=== PATIENT | male | born 1990 | race Caucasian/White ===

== ENCOUNTER 2016-11-09 14:07 | Emergency (ER) | payer MEDICAID, OTHER ==
[~2016-11-09] VITALS: Ht 182.9 cm; Wt 110.0 kg
[~2016-11-09 14:07] MED LIST: ALBU0.08 NEB; ALBU6.7H INH; CITA40TA4 PO; HYDR-3583 PO; MORP1TAB26 PO; NEBUKIT5; NEBULIZER/ADULT1 KIT; NEBULIZER1 MI1; RANI150T PO
[2016-11-09 14:40] VITALS: BP 129/92; PULSE 107; RESP 16; TEMP 98.5; O2SAT 99
[2016-11-09] MEDS ORDERED: SODIUM CHLOR 0.9% 1000 ML INJ 1,000 ML IV SCH (16:08)
[2016-11-09] MEDS ORDERED: SODIUM CHLORIDE 0.9% FLUSH 10 ML FLUSH IV FLUSH PRN (16:15)
[2016-11-09] MEDS ORDERED: ONDANSETRON HCL 4 MG/2 ML VIAL IVP ONE (16:15)
[2016-11-09] MEDS ORDERED: HYDROmorphone HCL PF 2 MG/ML VIAL IVS ONE (16:15)
[2016-11-09 16:22] VITALS: RESP 16; O2SAT 97
[2016-11-09 16:27] LABS: AUTOMATED NEUTROPHIL # 5.4 TH/MM3 (1.8-7.7); BASOPHIL # 0.1 TH/MM3 (0-0.2); BASOPHIL % 1.6 % (0.0-2.0); EOSINOPHIL # 0.6 TH/MM3 (0-0.4); EOSINOPHIL % 6.7 % (0.0-4.0); HEMATOCRIT 34.8 % (39.0-51.0); LYMPH % 25.9 % (9.0-44.0); LYMPHOCYTE # 2.4 TH/MM3 (1.0-4.8); MEAN CELL VOLUME 68.5 FL (80.0-100.0); MEAN CORPUSCULAR HEMOGLOBIN 20.9 PG (27.0-34.0); MEAN CORPUSCULAR HGB CONC 30.6 % (32.0-36.0); MONO % 8.6 % (0.0-8.0); NEUT % 57.2 % (16.0-70.0); PLATELET COUNT 402 TH/MM3 (150-450); RED BLOOD COUNT 5.09 MIL/MM3 (4.50-5.90); RED CELL DISTRIBUTION WIDTH 16.2 % (11.6-17.2); WHITE BLOOD COUNT 9.3 TH/MM3 (4.0-11.0)
[2016-11-09 16:32] LABS: HEMO FLAGS AUTO DIFF
[2016-11-09 16:35] LABS: CHLORIDE 106 MEQ/L (98-107); SODIUM (NA) 144 MEQ/L (136-145)
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
[2016-11-09 16:41] LABS: ANION GAP 8 MEQ/L (5-15); BLOOD UREA NITROGEN 10 MG/DL (7-18)
[2016-11-09 16:44] LABS: ALT (GPT) 33 U/L (12-78); AST (GOT) 20 U/L (15-37); GLOMERULAR FILTRATION RATE 89 ML/MIN (>89)
[2016-11-09 16:45] LABS: TOTAL BILIRUBIN ADULT 0.3 MG/DL (0.2-1.0)
[2016-11-09 16:47] LABS: ALKALINE PHOSPHATASE 68 U/L (45-117)
[2016-11-09 16:59] LABS: OVALOCYTES 1+ (NORMAL); PLATELET ESTIMATE SMEAR NORMAL (NORMAL); PLATELET MORPHOLOGY NORMAL (NORMAL); ROULEAUX PRESENT (NORMAL)
[2016-11-09 17:00] LABS: SCAN/DIFF AUTO DIFF CONFIRMED
[2016-11-09] MEDS ORDERED: HYDR-3533 PO (17:36)
[2016-11-09 17:49] VITALS: BP 115/70
[2016-11-25] MEDS ORDERED: ALBU6.7H INH (13:06)
[2016-12-24] MEDS ORDERED: PROM25TA10 PO (11:34)
== END 2016-11-09 17:55 | disposition home or self-care (01) ==
LOC: PHED 14:07
DX: K86.1 Other chronic pancreatitis (principal); M54.6 Pain in thoracic spine; J45.909 Unspecified asthma, uncomplicated; R11.2 Nausea with vomiting, unspecified; Z72.0 Tobacco use
CPT/HCPCS: 80053; 83690; 85025; 96361; 96374; 96375; 99284; J1170; J2405; J7030

== ENCOUNTER 2016-12-07 20:19 | Emergency (ER) | payer OTHER ==
[~2016-12-07] VITALS: Ht 182.9 cm; Wt 106.5 kg
[~2016-12-07 20:19] MED LIST changes: -CITA40TA4 PO; +HYDR-3533 PO; -HYDR-3583 PO; -MORP1TAB26 PO; -NEBUKIT5; -NEBULIZER/ADULT1 KIT; -NEBULIZER1 MI1; -RANI150T PO
[2016-12-07 20:23] VITALS: BP 123/86; PULSE 112; RESP 18; TEMP 98.3; O2SAT 99
[2016-12-07 22:42] VITALS: BP 106/59; PULSE 105; RESP 22; O2SAT 98
[2016-12-07] MEDS ORDERED: antidepressant (22:58)
[2016-12-07] MEDS ORDERED: PROM25TA10 PO (22:58)
--- NOTE | 2016-12-07 23:06 | PD ---
HPI Chief Complaint: GI Complaint Time Seen by Provider: 22:47 Travel History International Travel<30 days: No Contact w/Intl Traveler<30days: No Traveled to known affect area: No History of Present Illness HPI The patient is a 26-year-old male with a history of pancreatitis who comes in for bilateral upper quadrant pain and vomiting blood for 2 days. He saw a senior portfolio manager locally but he was referred to mail. He has not been drinking any alcohol in the last month he states. He does have Phenergan and hydrocodone at home for nausea and pain. He denies any syncopal or near syncopal spells. PFSH Past Medical History Asthma: Yes Diminished Hearing: No Neurologic: Yes (hx broken neck) Pancreatitis: Yes Past Surgical History Abdominal Surgery: Yes (exploratory lap for pancreatitis) Cholecystectomy: Yes Social History Alcohol Use: Yes (RARE) Tobacco Use: Yes (RARE) Allergies-Medications (Allergen,Severity, Reaction): Coded Allergies: Contrast Media (Verified Allergy, Severe, gi upset, 12/07/16) Stadol (Verified Allergy, Severe, gi upset, 12/07/16) Coumadin (Verified Allergy, Unknown, system failure, 12/07/16) Lovenox (Verified Allergy, Unknown, system failure, 12/07/16) Onion (Verified Allergy, Unknown, pancreatitis, 12/07/16) Silver-Containing Cmpds (Verified Allergy, Unknown, system failure, ) Reported Meds & Prescriptions Reported Meds & Active Scripts Active Proventil Hfa 6.7 GM Inh (Albuterol Sulfate) 90 Mcg/Act Aer 2 Puff INH Q2HR PRN Lortab (Hydrocodone-Acetaminophen) 5-325 Mg Tab 1-2 Tab PO Q6H PRN Albuterol Neb (Albuterol Sulfate) 2.5 Mg/3 Ml Neb 2.5 Mg NEB Q4HR NEB PRN Reported Phenergan (Promethazine HCl) 25 Mg Tablet 25 Mg PO Q6H PRN [antidepressant] Review of Systems Except as stated in HPI: all other systems reviewed are Neg Physical Exam Narrative GENERAL: The patient is alert, anxious, oriented 3 in moderate apparent distress with his upper quadrant abdominal discomfort. He does not appear anemic. His vital signs show heart rate of 112 but are otherwise normal. SKIN: Focused skin assessment warm/dry. HEAD: Atraumatic. Normocephalic. EYES: Pupils equal and round. No scleral icterus. No injection or drainage. ENT: No nasal bleeding or discharge. Mucous membranes pink and moist. NECK: Trachea midline. No JVD. CARDIOVASCULAR: Regular rate and rhythm. No murmur appreciated. RESPIRATORY: No accessory muscle use. Clear to auscultation. Breath sounds equal bilaterally. GASTROINTESTINAL: Abdomen soft, with tenderness bilaterally in the upper quadrants to direct palpation, nondistended. Hepatic and splenic margins not palpable. No guarding or rebound is present. MUSCULOSKELETAL: No obvious deformities. No clubbing. No cyanosis. No edema. NEUROLOGICAL: Awake and alert. No obvious cranial nerve deficits. Motor grossly within normal limits. Normal speech. PSYCHIATRIC: Appropriate mood and affect except that the patient is anxious; insight and judgment normal. Data Data Last Documented VS Vital Signs Date Time Temp Pulse Resp B/P Pulse Ox O2 Delivery O2 Flow Rate FiO2 12/08/16 00:07 20 12/07/16 23:39 95 112/81 98 Room Air 12/07/16 23:12 98.1 Orders Complete Blood Count With Diff (12/07/16 23:15) Comprehensive Metabolic Panel (12/07/16 23:15) Lipase (12/07/16 23:15) Prothrombin Time / Inr (Pt) (12/07/16 23:15) Act Partial Throm Time (Ptt) (12/07/16 23:15) Urinalysis - C+S If Indicated (12/07/16 23:15) Iv Access Insert/Monitor (12/07/16 23:15) Ecg Monitoring (12/07/16 23:15) Oximetry (12/07/16 23:15) Sodium Chloride 0.9% Flush (Ns Flush) (12/07/16 23:15) Ketorolac Inj (Toradol Inj) (12/07/16 23:15) Ondansetron Inj (Zofran Inj) (12/07/16 23:15) Sodium Chlor 0.9% 1000 Ml Inj (Ns 1000 M (12/07/16 23:45) Hydromorphone Pf Inj (Dilaudid Pf Inj) (12/08/16 00:15) Ondansetron Inj (Zofran Inj) (12/08/16 00:15) Labs Laboratory Tests Test 12/07/16 23:25 Prothrombin Time 10.7 SEC Prothromb Time International 1.0 RATIO Ratio Activated Partial 28.9 SEC Thromboplast Time Sodium Level 141 MEQ/L Potassium Level 3.8 MEQ/L Chloride Level 106 MEQ/L Carbon Dioxide Level 27.2 MEQ/L Anion Gap 8 MEQ/L Blood Urea Nitrogen 10 MG/DL Creatinine 1.10 MG/DL Estimat Glomerular Filtration 80 ML/MIN Rate Random Glucose 87 MG/DL Calcium Level 8.5 MG/DL Total Bilirubin 0.2 MG/DL Aspartate Amino Transf 23 U/L (AST/SGOT) Alanine Aminotransferase 35 U/L (ALT/SGPT) Alkaline Phosphatase 69 U/L Total Protein 7.4 GM/DL Albumin 3.5 GM/DL Lipase 241 U/L White Blood Count 9.3 TH/MM3 Red Blood Count 5.34 MIL/MM3 Hemoglobin 11.2 GM/DL Hematocrit 36.1 % Mean Corpuscular Volume 67.7 FL Mean Corpuscular Hemoglobin 21.0 PG Mean Corpuscular Hemoglobin 31.0 % Concent Red Cell Distribution Width 17.0 % Platelet Count 364 TH/MM3 Mean Platelet Volume 8.3 FL Neutrophils (%) (Auto) 57.6 % Lymphocytes (%) (Auto) 24.0 % Monocytes (%) (Auto) 7.8 % Eosinophils (%) (Auto) 9.8 % Basophils (%) (Auto) 0.8 % Neutrophils # (Auto) 5.4 TH/MM3 Lymphocytes # (Auto) 2.2 TH/MM3 Monocytes # (Auto) 0.7 TH/MM3 Eosinophils # (Auto) 0.9 TH/MM3 Basophils # (Auto) 0.1 TH/MM3 CBC Comment AUTO DIFF MDM Medical Decision Making Medical Screen Exam Complete: Yes Emergency Medical Condition: Yes Medical Record Reviewed: Yes Interpretation(s) The CBC shows a hemoglobin of 11.2 and hematocrit of 36.1 but is otherwise normal. Hemoglobin is actually increased since November 09 of this year. The coagulation profile is normal and the complete metabolic profile is normal except for a GFR of 80. The lipase is normal. Differential Diagnosis Pancreatitis, ulcer pain, stomach cancerunlikely, electrolyte disorder, anemia Narrative Course The patient's hemoglobin is actually increased since November 09. He apparently did not lose a significant amount of blood. He has not vomited here in emergency department. He does appear anxious. Plan: The patient will get Percocet 5 every 6 hours as needed for pain. He needs to follow-up with his primary care physician this week. Diagnosis Primary Impression: Abdominal pain of unknown etiology Additional Impression: Hematemesis with nausea Med/Other Pt SpecificInfo: Prescription(s) given Scripts Oxycodone-Acetaminophen (Percocet)5-325 mg Tab1 Tab PO Q6H PRN (PAIN) #15 TAB Ref 0 Prov:Naseem Ortega MD 12/08/16 Ranitidine (Zantac)150 Mg [id number] Mg PO BID #60 TAB Ref 0 Prov:Naseem Ortega MD 12/08/16 Omeprazole Magnesium (Prilosec)20 Mg Tab20 Mg PO DAILY #30 Prov:Naseem Ortega MD 12/08/16 Disposition: 01 DISCHARGE HOME Condition: Stable Naseem Ortega MD December 07, 2016 23:06
[2016-12-07 23:12] VITALS: BP 103/64; PULSE 102; RESP 24; TEMP 98.1; O2SAT 99
[2016-12-07] MEDS ORDERED: ONDANSETRON HCL 4 MG/2 ML VIAL IV ONE (23:15)
[2016-12-07] MEDS ORDERED: KETOROLAC TROMETHAMINE 30 MG/ML (IVP) VIAL IVP ONE (23:15)
[2016-12-07] MEDS ORDERED: SODIUM CHLORIDE 0.9% FLUSH 10 ML FLUSH IV FLUSH PRN (23:15)
[2016-12-07 23:29] VITALS: O2SAT 97
[2016-12-07 23:37] LABS: AUTOMATED NEUTROPHIL # 5.4 TH/MM3 (1.8-7.7); BASOPHIL # 0.1 TH/MM3 (0-0.2); BASOPHIL % 0.8 % (0.0-2.0); EOSINOPHIL # 0.9 TH/MM3 (0-0.4); EOSINOPHIL % 9.8 % (0.0-4.0); HEMATOCRIT 36.1 % (39.0-51.0); LYMPHOCYTE # 2.2 TH/MM3 (1.0-4.8); MEAN CELL VOLUME 67.7 FL (80.0-100.0); MONO % 7.8 % (0.0-8.0); NEUT % 57.6 % (16.0-70.0); PLATELET COUNT 364 TH/MM3 (150-450); RED BLOOD COUNT 5.34 MIL/MM3 (4.50-5.90); WHITE BLOOD COUNT 9.3 TH/MM3 (4.0-11.0)
[2016-12-07 23:39] VITALS: BP 112/81; PULSE 95; RESP 22; O2SAT 98
[2016-12-07 23:44] LABS: CHLORIDE 106 MEQ/L (98-107); POTASSIUM 3.8 MEQ/L (3.5-5.1); SODIUM (NA) 141 MEQ/L (136-145)
[2016-12-07] MEDS: SODIUM CHLOR 0.9% 1000 ML INJ 1,000 ML IV SCH (23:45)
[2016-12-07 23:48] LABS: ANION GAP 8 MEQ/L (5-15); BICARBONATE 27.2 MEQ/L (21.0-32.0); BLOOD UREA NITROGEN 10 MG/DL (7-18)
[2016-12-07 23:51] LABS: ALT (GPT) 35 U/L (12-78); APTT (PATIENT) 28.9 SEC (24.3-30.1); AST (GOT) 23 U/L (15-37); GLOMERULAR FILTRATION RATE 80 ML/MIN (>89); PROTHROMBIN TIME - PATIENT 10.7 SEC (9.8-11.6)
[2016-12-07 23:52] LABS: TOTAL BILIRUBIN ADULT 0.2 MG/DL (0.2-1.0)
[2016-12-07 23:54] LABS: ALKALINE PHOSPHATASE 69 U/L (45-117)
[2016-12-08 00:10] VITALS: BP 107/62; PULSE 78; RESP 17; O2SAT 98
[2016-12-08] MEDS: SODIUM CHLOR 0.9% 1000 ML INJ 1,000 ML IV SCH (00:15)
[2016-12-08] MEDS ORDERED: HYDROmorphone HCL PF 1 MG/ML VIAL IVP ONE (00:15)
[2016-12-08] MEDS ORDERED: ONDANSETRON HCL 4 MG/2 ML VIAL IV ONE (00:15)
[2016-12-08 00:25] LABS: HEMO FLAGS AUTO DIFF
[2016-12-08 00:37] VITALS: RESP 17
[2016-12-08] MEDS ORDERED: PERC5TAB12 PO (00:44)
[2016-12-08] MEDS ORDERED: ZANT150T2 PO (00:44)
[2016-12-08] MEDS ORDERED: PRIL20TA2 PO (00:44)
[2016-12-08 00:48] LABS: OVALOCYTES 1+ (NORMAL); PLATELET ESTIMATE SMEAR NORMAL (NORMAL); PLATELET MORPHOLOGY CLUMPED (NORMAL); SCAN/DIFF AUTO DIFF CONFIRMED
[2016-12-24] MEDS ORDERED: PROM25TA10 PO (11:34)
== END 2016-12-08 01:00 | disposition home or self-care (01) ==
LOC: PHED 20:19
DX: R10.9 Unspecified abdominal pain (principal); K92.0 Hematemesis
CPT/HCPCS: 80053; 83690; 85025; 85610; 85730; 96361; 96374; 96375; 96376; 99284; J1170; J1885; J2405; J7030

== ENCOUNTER 2017-02-05 12:26 | Observation (INO) | payer MEDICAID, OTHER ==
[~2017-02-05] VITALS: Ht 182.9 cm; Wt 110.0 kg
[~2017-02-05 12:26] MED LIST changes: +CITA40TA4 PO; -HYDR-3533 PO; +OSEL75 PO; +PRIL20TA2 PO; +PROM25TA10 PO; +ZANT150T2 PO; +antidepressant
[2017-02-05 12:38] VITALS: BP 135/87; PULSE 121; RESP 16; TEMP 98.4; O2SAT 98
[2017-02-05 13:08] LABS: MEAN CORPUSCULAR HGB CONC 29.9 % (32.0-36.0)
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
[2017-02-05] MEDS ORDERED: ONDANSETRON HCL 4 MG/2 ML VIAL IVP ONE (13:15)
[2017-02-05] MEDS ORDERED: MORPHINE SULFATE 8 MG/ML INJ IV PUSH ONE (13:15)
[2017-02-05] MEDS ORDERED: SODIUM CHLORIDE 0.9% FLUSH 10 ML FLUSH IV FLUSH PRN (13:15)
[2017-02-05 13:19] VITALS: BP 132/87; PULSE 112; RESP 20; O2SAT 98; O2SAT 99
[2017-02-05 13:19] LABS: AUTOMATED NEUTROPHIL # 10.6 TH/MM3 (1.8-7.7); BASOPHIL # 0.1 TH/MM3 (0-0.2); BASOPHIL % 0.5 % (0.0-2.0); EOSINOPHIL # 0.1 TH/MM3 (0-0.4); HEMATOCRIT 38.4 % (39.0-51.0); LYMPH % 13.2 % (9.0-44.0); LYMPHOCYTE # 1.8 TH/MM3 (1.0-4.8); MEAN CELL VOLUME 65.9 FL (80.0-100.0); MEAN CORPUSCULAR HEMOGLOBIN 19.7 PG (27.0-34.0); MONO % 6.7 % (0.0-8.0); NEUT % 78.6 % (16.0-70.0); PLATELET COUNT 365 TH/MM3 (150-450); RED BLOOD COUNT 5.82 MIL/MM3 (4.50-5.90); RED CELL DISTRIBUTION WIDTH 18.4 % (11.6-17.2); WHITE BLOOD COUNT 13.5 TH/MM3 (4.0-11.0)
[2017-02-05 13:21] LABS: HEMO FLAGS AUTO DIFF
[2017-02-05 13:27] LABS: CHLORIDE 105 MEQ/L (98-107); POTASSIUM 3.7 MEQ/L (3.5-5.1); SODIUM (NA) 141 MEQ/L (136-145)
[2017-02-05 13:31] LABS: ANION GAP 7 MEQ/L (5-15); BICARBONATE 29.1 MEQ/L (21.0-32.0); BLOOD UREA NITROGEN 9 MG/DL (7-18)
[2017-02-05 13:33] LABS: INTERNATIONAL NORMALIZED RATIO 0.9 RATIO; PROTHROMBIN TIME - PATIENT 10.3 SEC (9.8-11.6)
[2017-02-05 13:34] LABS: ALT (GPT) 49 U/L (12-78); AST (GOT) 18 U/L (15-37); GLOMERULAR FILTRATION RATE 89 ML/MIN (>89)
[2017-02-05 13:36] LABS: TOTAL BILIRUBIN ADULT 0.3 MG/DL (0.2-1.0)
[2017-02-05 13:37] LABS: ALKALINE PHOSPHATASE 80 U/L (45-117)
[2017-02-05 13:39] LABS: SCAN/DIFF AUTO DIFF CONFIRMED
[2017-02-05] MEDS ORDERED: SODIUM CHLOR 0.9% 1000 ML INJ 1,000 ML IV ONE ×3 (14:00→16:00)
--- NOTE | 2017-02-05 14:16 | RADRPT ---
EXAM DATE/TIME: 02/05/2017 13:38 [facility] COMPARISON: No previous studies available for comparison. INDICATIONS : Epigastric pain. Nausea. ORAL CONTRAST: No oral contrast ingested. RADIATION DOSE: 21.82 CTDIvol (mGy) MEDICAL HISTORY : Pancreatitis. Renal failure, chronic. SURGICAL HISTORY : Cholecystectomy. ENCOUNTER: Initial ACUITY: 4 - 6 days PAIN SCALE: 7/10 LOCATION: Epigastric TECHNIQUE: Volumetric scanning of the abdomen and pelvis was performed. Using automated exposure control and ad justment of the mA and/or kV according to patient size, radiation dose was kept as low as reasonably achievable to obtain optimal diagnostic quality images. DICOM format image data is available electro nically for review and comparison. FINDINGS: LOWER LUNGS: The visualized lower lungs are clear. LIVER: Homogeneous density without lesion. There is no dilation of the biliary tree. Status post cholecyst ectomy. No calcified gallstones. SPLEEN: Normal size without lesion. PANCREAS: Scattered punctate calcifications are noted in the region of the head and uncinate process of the aquino creas indicating chronic calcific pancreatitis. There is dilatation of the main pancreatic duct. No a cute inflammatory changes are noted to suggest acute pancreatitis. KIDNEYS: Normal in size and shape. There is no mass, stone, or hydronephrosis. ADRENAL GLANDS: Within normal limits. VASCULAR: There is no aortic aneurysm. BOWEL/MESENTERY: The stomach, small bowel, and colon demonstrate no acute abnormality. There is no free intraperitone al air or fluid. ABDOMINAL WALL: Within normal limits. RETROPERITONEUM: There is no lymphadenopathy. BLADDER: No wall thickening or mass. REPRODUCTIVE: Within normal limits. INGUINAL: There is no lymphadenopathy or hernia. MUSCULOSKELETAL: Within normal limits for patient age. CONCLUSION: Scattered punctate calcifications within the head and uncinate process of the pancrea s suggesting chronic calcific pancreatitis with dilatation of the main pancreatic duct, but no signs of acute pancreatitis. Avelino Ramirez MD on February 05, 2017 at 14:11 Board Certified Radiologist. This report was verified electronically.
[2017-02-05 14:43] VITALS: BP 132/83; PULSE 111; RESP 18; O2SAT 99
[2017-02-05] MEDS ORDERED: MORPHINE SULFATE 4 MG/ML INJ IV PUSH ONE (14:45)
[2017-02-05] MEDS ORDERED: ONDANSETRON HCL 4 MG/2 ML VIAL IVP PRN (16:00)
[2017-02-05] MEDS ORDERED: ACETAMINOPHEN 325 MG TAB PO PRN (16:00)
[2017-02-05] MEDS ORDERED: PROMETHAZINE HCL 25 MG TAB PO PRN (16:15)
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
[2017-02-05] MEDS: MORPHINE SULFATE 4 MG/ML INJ IV PUSH PRN ×3 (16:34→23:33)
[2017-02-05] MEDS: SODIUM CHLOR 0.9% 1000 ML INJ 1,000 ML IV SCH (16:42)
[2017-02-05 17:24] LABS: ALKALINE PHOSPHATASE 109 U/L (45-117)
[2017-02-05 18:10] VITALS: BP 116/71; PULSE 91; RESP 15; TEMP 97.7; O2SAT 99
--- NOTE | 2017-02-05 18:51 | RADRPT ---
EXAM DATE/TIME: 02/05/2017 18:28 [place] COMPARISON: No previous studies available for comparison. INDICATIONS : Chest pain and fever. MEDICAL HISTORY : Asthma. Pancreatitis. Renal failure, chronic. SURGICAL HISTORY : Cholecystectomy. ENCOUNTER: Initial ACUITY: 3 days PAIN SCORE: 5/10 LOCATION: Bilateral chest FINDINGS: PA and lateral views of the chest demonstrate healing right clavicle fracture. No focal consolidation or effusion. Heart size normal. No pneumothorax. CONCLUSION: 1. No active disease. Prince Galeas MD on February 05, 2017 at 18:48 Board Certified Radiologist. This report was verified electronically.
[2017-02-05 19:11] LABS: TRANSFERRIN IRON PROFILE 272 MG/DL (200-360)
[2017-02-05 20:00] VITALS: BP 119/69; PULSE 82; RESP 18; TEMP 97.3; O2SAT 98
[2017-02-05] MEDS: OSELTAMIVIR PHOSPHATE 75 MG CAP PO SCH (20:10)
[2017-02-05] MEDS: RESP: ALBUTEROL 2.5 MG/3 ML NEB (PRN) NEB (21:00)
[2017-02-06] VITALS: BP 110/72; PULSE 82; RESP 18; TEMP 96.4; O2SAT 99
[2017-02-06] MEDS: SODIUM CHLOR 0.9% 1000 ML INJ 1,000 ML IV SCH ×2 (01:46→11:46)
[2017-02-06] MEDS: MORPHINE SULFATE 4 MG/ML INJ IV PUSH PRN ×5 (02:45→18:57)
[2017-02-06 06:08] LABS: POTASSIUM 3.8 MEQ/L (3.5-5.1)
[2017-02-06 06:11] LABS: BICARBONATE 27.6 MEQ/L (21.0-32.0)
[2017-02-06 08:00] VITALS: BP 120/75; PULSE 86; RESP 18; TEMP 97.5; O2SAT 99
--- NOTE | 2017-02-06 08:54 | HHI.PR ---
Subjective Remarks Patient seen and evaluated today in follow-up for acute pancreatitis from a history of chronic pancreatitis. Patient with IV morphine usage over the evening every 4 hours. He is noted to have decreased iron studies and reports poor absorption due to his chronic pancreatitis. No fevers or chills overnight. Objective Vitals Vital Signs Date Time Temp Pulse Resp B/P Pulse Ox O2 Delivery O2 Flow Rate FiO2 02/06/17 08:00 97.5 86 18 120/75 99 02/06/17 00:00 96.4 82 18 110/72 99 02/05/17 20:00 97.3 82 18 119/69 98 02/05/17 18:10 97.7 91 15 116/71 99 02/05/17 16:39 20 02/05/17 14:43 111 18 132/83 99 Room Air 02/05/17 13:19 99 02/05/17 13:19 112 20 132/87 98 02/05/17 12:38 98.4 121 16 135/87 98 I/O 02/05/17 02/05/17 02/05/17 02/06/17 02/06/17 02/06/17 07:00 15:00 23:00 07:00 15:00 23:00 Intake Total 240 ml Balance 240 ml Intake Oral 240 ml # Voids 5 # Bowel Movements 0 Result Diagram: 02/05/17 1310 02/06/17 0456 Imaging Last Impressions Chest X-Ray 02/05/17 0000 Signed Impressions: Service Date/Time: January 18:28 - CONCLUSION: 1. No active disease. Prince Galeas MD Abdomen/Pelvis CT 02/05/17 0000 Signed Impressions: Service Date/Time: January 13:38 - CONCLUSION: Scattered punctate calcifications within the head and uncinate process of the pancreas suggesting chronic calcific pancreatitis with dilatation of the main pancreatic duct, but no signs of acute pancreatitis. Avelino Ramirez MD Objective Remarks GENERAL: This is a well-nourished, well-developed patient, in no apparent distress. CARDIOVASCULAR: Regular rate and rhythm without murmurs, gallops, or rubs. RESPIRATORY: Clear to auscultation. Breath sounds equal bilaterally. No wheezes , rales, or rhonchi. GASTROINTESTINAL: Abdomen soft, non-tender, nondistended. Normal active bowel sounds MUSCULOSKELETAL: Extremities without clubbing, cyanosis, or edema. NEURO: Alert & Oriented x4 to person, place, time, situation. Moves all ext x4 A/P Problem List: (1) Acute on chronic pancreatitis ICD Code: K85.90 Status: Acute Plan: NPO except ice IV hydration IV Narcotics for pain (2) Influenza ICD Code: J11.1 Status: Acute Plan: serology 02/04 Influenza positive, further testing pending Rx Tamiflu (3) Iron deficiency anemia ICD Code: D50.9 Status: Acute Plan: We'll continue with IV iron, patient has reported a poor tolerance to oral iron in the past Kiana Foy MD Feb 06, 2017 08:54
[2017-02-06] MEDS: OSELTAMIVIR PHOSPHATE 75 MG CAP PO SCH ×2 (09:11→21:16)
[2017-02-06] MEDS: PANTOPRAZOLE SOD 40 MG DELAYED RELEASE TAB PO SCH (09:11)
[2017-02-06] MEDS: CITALOPRAM HYDROBROMIDE 40 MG TAB PO SCH (09:11)
[2017-02-06 10:37] LABS: HDL CHOLESTEROL 58.7 MG/DL (40.0-60.0)
[2017-02-06] MEDS: IRON SUCROSE INJ 100 MG in SODIUM CHLORIDE 0.9% INJ 100 ML IV SCH (11:45)
[2017-02-06 12:00] VITALS: BP 136/87; PULSE 76; RESP 18; TEMP 97.2; O2SAT 98
[2017-02-06 20:00] VITALS: BP 136/84; PULSE 96; RESP 20; TEMP 98.7; O2SAT 99
[2017-02-06] MEDS: RESP: ALBUTEROL 2.5 MG/3 ML NEB (PRN) NEB (23:47)
[2017-02-07] VITALS: BP 113/72; PULSE 86; RESP 20; TEMP 98.3; O2SAT 100
[2017-02-07] MEDS ORDERED: MORPHINE SULFATE 4 MG/ML INJ IV PUSH PRN
[2017-02-07] MEDS: SODIUM CHLOR 0.9% 1000 ML INJ 1,000 ML IV SCH ×4 (03:15→21:29)
[2017-02-07] MEDS: ACETAMINOPHEN/HYDROcodone 325 MG/7.5 MG TAB PO PRN ×3 (03:19→15:38)
[2017-02-07 06:10] LABS: BLOOD, URINE NEG (NEG); GLUCOSE,URINE NEG (NEG); KETONE, URINE NEG (NEG); NITRITE,URINE NEG (NEG)
[2017-02-07 06:13] LABS: URINE COLOR YELLOW (YELLW/STRAW)
[2017-02-07 06:15] LABS: COMMENT (UR) CULT NOT INDICATED; CULTURE IF INDICATED CULT NOT INDICATED; RBC, URINE 0-2 /hpf (0-3); SQUAMOUS EPITHELIAL CELL URINE 0-5 /hpf (0-5); WBC, URINE 0-2 /hpf (0-5)
[2017-02-07 08:00] VITALS: BP 102/63; PULSE 80; RESP 20; TEMP 97.5; O2SAT 96
[2017-02-07] MEDS: PANTOPRAZOLE SOD 40 MG DELAYED RELEASE TAB PO SCH (09:02)
[2017-02-07] MEDS: OSELTAMIVIR PHOSPHATE 75 MG CAP PO SCH ×2 (09:02→20:00)
[2017-02-07] MEDS: CITALOPRAM HYDROBROMIDE 40 MG TAB PO SCH (09:02)
--- NOTE | 2017-02-07 11:50 | HHI.PR ---
Subjective Remarks Seen and evaluated today in follow-up for acute pancreatitis. Improved symptoms. Patient will like to advance his diet. Objective Vitals Vital Signs Date Time Temp Pulse Resp B/P Pulse Ox O2 Delivery O2 Flow Rate FiO2 02/07/17 08:00 97.5 80 20 102/63 96 02/07/17 00:00 98.3 86 20 113/72 100 02/06/17 20:00 98.7 96 20 136/84 99 02/06/17 12:00 97.2 76 18 136/87 98 I/O 02/06/17 02/06/17 02/06/17 02/07/17 02/07/17 02/07/17 07:00 15:00 23:00 07:00 15:00 23:00 Intake Total 240 ml 0 ml 1245 ml 0 ml Balance 240 ml 0 ml 1245 ml 0 ml Intake Oral 240 ml 0 ml 0 ml IV Total 1245 ml # Voids 5 8 2 # Bowel Movements 0 0 Result Diagram: 02/05/17 1310 02/06/17 0456 Imaging Last Impressions Chest X-Ray 02/05/17 0000 Signed Impressions: Service Date/Time: January 18:28 - CONCLUSION: 1. No active disease. Prince Galeas MD Abdomen/Pelvis CT 02/05/17 0000 Signed Impressions: Service Date/Time: January 13:38 - CONCLUSION: Scattered punctate calcifications within the head and uncinate process of the pancreas suggesting chronic calcific pancreatitis with dilatation of the main pancreatic duct, but no signs of acute pancreatitis. Avelino Ramirez MD Objective Remarks GENERAL: This is a well-nourished, well-developed patient, in no apparent distress. CARDIOVASCULAR: Regular rate and rhythm without murmurs, gallops, or rubs. RESPIRATORY: Clear to auscultation. Breath sounds equal bilaterally. No wheezes , rales, or rhonchi. GASTROINTESTINAL: Abdomen soft, non-tender, nondistended. Normal active bowel sounds MUSCULOSKELETAL: Extremities without clubbing, cyanosis, or edema. NEURO: Alert & Oriented x4 to person, place, time, situation. Moves all ext x4 A/P Problem List: (1) Acute on chronic pancreatitis ICD Code: K85.90 Status: Acute Plan: Full liquids IV hydration IV and by mouth Narcotics for pain (2) Influenza ICD Code: J11.1 Status: Acute Plan: serology 02/04 Influenza positive, continue Tamiflu to complete course Negative study here likely due to current treatment (3) Iron deficiency anemia ICD Code: D50.9 Status: Acute Plan: We'll continue with 2/3 days IV iron, patient has reported a poor tolerance to oral iron in the past Discharge Planning d/c in AM if tolerating PO Kiana Foy MD Feb 07, 2017 11:50
[2017-02-07 12:00] VITALS: BP 138/79; PULSE 108; RESP 18; TEMP 98; O2SAT 100
[2017-02-07] MEDS: IRON SUCROSE INJ 100 MG in SODIUM CHLORIDE 0.9% INJ 100 ML IV SCH (12:17)
[2017-02-07] MEDS: MORPHINE SULFATE 4 MG/ML INJ IV PUSH PRN ×2 (12:18→19:59)
[2017-02-07 16:00] VITALS: BP 136/92; PULSE 95; RESP 18; TEMP 97.6; O2SAT 100
[2017-02-07] MEDS ORDERED: HYDR-3580 PO (16:54)
[2017-02-07] MEDS ORDERED: OSEL75 PO (16:54)
[2017-02-07] MEDS ORDERED: PANT40TA3 PO (16:54)
--- NOTE | 2017-02-07 16:54 | HHI.DCPOC ---
Discharge Care Plan Diagnosis: (1) Iron deficiency anemia (2) Chronic pancreatitis (3) Influenza Goals to Promote Your Health * To prevent worsening of your condition and complications * To maintain your health at the optimal level Directions to Meet Your Goals Take your medications as prescribed Follow your dietary instruction Follow activity as directed Keep your appointments as scheduled Take your immunizations and boosters as scheduled If your symptoms worsen call your PCP, if no PCP go to Urgent Care Center or Emergency Room Smoking is Dangerous to Your Health. Avoid second hand smoke Call the 24-hour hour crisis hotline for domestic abuse at Kiana Foy MD Feb 07, 2017 16:54
[2017-02-07 19:17] LABS: AUTOMATED NEUTROPHIL # 6.1 TH/MM3 (1.8-7.7); BASOPHIL # 0.2 TH/MM3 (0-0.2); BASOPHIL % 2.6 % (0.0-2.0); EOSINOPHIL # 0.2 TH/MM3 (0-0.4); EOSINOPHIL % 2.2 % (0.0-4.0); HEMATOCRIT 35.9 % (39.0-51.0); LYMPH % 23.2 % (9.0-44.0); LYMPHOCYTE # 2.2 TH/MM3 (1.0-4.8); MEAN CELL VOLUME 65.8 FL (80.0-100.0); MEAN CORPUSCULAR HEMOGLOBIN 20.2 PG (27.0-34.0); MEAN CORPUSCULAR HGB CONC 30.6 % (32.0-36.0); MONO % 6.9 % (0.0-8.0); NEUT % 65.1 % (16.0-70.0); PLATELET COUNT 314 TH/MM3 (150-450); RED BLOOD COUNT 5.46 MIL/MM3 (4.50-5.90); RED CELL DISTRIBUTION WIDTH 18.5 % (11.6-17.2); WHITE BLOOD COUNT 9.3 TH/MM3 (4.0-11.0)
[2017-02-07 19:30] LABS: HEMO FLAGS AUTO DIFF
[2017-02-07 20:00] LABS: OVALOCYTES 1+ (NORMAL); PLATELET ESTIMATE SMEAR NORMAL (NORMAL); PLATELET MORPHOLOGY NORMAL (NORMAL); SCAN/DIFF AUTO DIFF CONFIRMED
[2017-02-07 20:18] VITALS: BP 141/82; PULSE 98; RESP 20; TEMP 99; O2SAT 99
[2017-02-08 00:06] VITALS: BP 136/83; PULSE 84; RESP 14; TEMP 97.6; O2SAT 99
[2017-02-08] MEDS: ACETAMINOPHEN/HYDROcodone 325 MG/7.5 MG TAB PO PRN ×2 (00:29→07:38)
[2017-02-08] MEDS: OSELTAMIVIR PHOSPHATE 75 MG CAP PO SCH (07:38)
[2017-02-08] MEDS: CITALOPRAM HYDROBROMIDE 40 MG TAB PO SCH (07:38)
[2017-02-08] MEDS: PANTOPRAZOLE SOD 40 MG DELAYED RELEASE TAB PO SCH (07:38)
[2017-02-08 08:00] VITALS: BP 117/87; PULSE 84; RESP 19; TEMP 97.2; O2SAT 100
[2017-02-08 08:38] VITALS: RESP 14
[2017-02-08] MEDS ORDERED: FERR325T8 PO (08:53)
--- NOTE | 2017-02-08 08:55 | HHI.DS ---
Discharge Summary Admission Date Feb 05, 2017 at 15:07 Discharge Date: Feb 08, 2017 Admitting Diagnosis Acute on chronic pancreatitis (1) Acute on chronic pancreatitis ICD Code: K85.90 (2) Influenza ICD Code: J11.1 (3) Iron deficiency anemia ICD Code: D50.9 Procedures none Brief History - From Admission Patient is a 26-year-old gentleman with a known history of pancreatitis who came into the hospital with complaints of severe abdominal pain which was epigastric and radiating into the back. It was associated with nausea. He has had several hospitalizations for pancreatitis however is new to our area. Patient says he was on some medications for ADD as a child and has had recurrent pancreatitis. He also has a history of asthma and admits a nonproductive cough for the last 2 days with increasing dyspnea exertion and some increasing fatigue. He usually has taken Percocet and Lortab for the pain but ran out of his medicines. He has been instructed to follow-up with pain management per his primary doctor whom he saw yesterday. At that time the patient did have outpatient rapid flu which was positive and he was prescribed Tamiflu and his citalopram (history of depression) was refilled.. He was having the same belly pain yesterday however it got worse over the last 24 hours and for this reason the patient came to the hospital. His pain is now improved with IV morphine. He is still tachycardic and has leukocytosis with the evidence of anemia on exam. For these reasons the patient was recommended for observation in the hospital CBC/BMP: 02/07/17 1910 02/06/17 0456 Significant Findings Laboratory Tests Test 02/05/17 02/05/17 02/06/17 02/07/17 13:10 16:50 04:56 19:10 White Blood Count 13.5 TH/MM3 (4.0-11.0) Hemoglobin 11.5 GM/DL 11.0 GM/DL (13.0-17.0) (13.0-17.0) Hematocrit 38.4 % 35.9 % (39.0-51.0) (39.0-51.0) Mean Corpuscular Volume 65.9 FL 65.8 FL (80.0-100.0) (80.0-100.0) Mean Corpuscular Hemoglobin 19.7 PG 20.2 PG (27.0-34.0) (27.0-34.0) Mean Corpuscular Hemoglobin 29.9 % 30.6 % Concent (32.0-36.0) (32.0-36.0) Red Cell Distribution Width 18.4 % 18.5 % (11.6-17.2) (11.6-17.2) Neutrophils (%) (Auto) 78.6 % (16.0-70.0) Neutrophils # (Auto) 10.6 TH/MM3 (1.8-7.7) Lipase 861 U/L 898 U/L (73-393) (73-393) Iron Level 17 MCG/DL (65-175) Percent Iron Saturation 4.5 % (20-50) Folate GREATER THAN 20.0 NG/ML (3.1-17.5) Blood Urea Nitrogen 6 MG/DL (7-18) Calcium Level 8.3 MG/DL (8.5-10.1) LDL Cholesterol 121 MG/DL (0-99) Basophils (%) (Auto) 2.6 % (0.0-2.0) Ovalocytes 1+ (NORMAL) PE at Discharge GENERAL: This is a well-nourished, well-developed patient, in no apparent distress. CARDIOVASCULAR: Regular rate and rhythm without murmurs, gallops, or rubs. RESPIRATORY: Clear to auscultation. Breath sounds equal bilaterally. No wheezes , rales, or rhonchi. GASTROINTESTINAL: Abdomen soft, non-tender, nondistended. Normal active bowel sounds MUSCULOSKELETAL: Extremities without clubbing, cyanosis, or edema. NEURO: Alert & Oriented x4 to person, place, time, situation. Moves all ext x4 Pt update on day of discharge Patient with improvement of abdominal pain and tolerance of oral pain medicine and oral nutrition. Discharge plans discussed with patient Hospital Course Patient seen and treated for acute pancreatitis superimposed on chronic pancreatitis. He. Bowel rest with IV fluids and IV narcotics. He was found to have anemia of iron deficiency and started on iron pills and recommended for follow-up as an outpatient and she did agree to. He was also treated with Tamiflu for the flu which was seen in outpatient setting patient's discharged home Pt Condition on Discharge: Good Discharge Disposition: Discharge Home Discharge Time: <= 30 minutes Discharge Instructions DIET: Follow Instructions for: As Tolerated, No Restrictions Activities you can perform: Regular-No Restrictions Follow up Referrals: PCP Follow-up - 1 Week New Medications: Ferrous Sulfate (Ferrous Sulfate) 325 Mg (65 Mg Iron) Tablet 325 MG PO BIDPC Nutritional Supplement #60 Ref 0 TAB Hydrocodone-Acetaminophen (Hydrocodone-Acetaminophen) 7.5-325 mg Tab 1 TAB PO Q6H PRN pain #20 TAB Oseltamivir (Tamiflu) 75 Mg Cap 75 MG PO BID Infection #5 CAP Pantoprazole (Pantoprazole) 40 Mg Tab 40 MG PO DAILY stomach #14 TAB Continued Medications: Albuterol 6.7 GM Inh (Proventil Hfa 6.7 GM Inh) 90 Mcg/Act Aer 2 PUFF INH Q2HR PRN SHORTNESS OF BREATH #1 Ref 1 INHALER Albuterol Neb (Albuterol Neb) 2.5 Mg/3 Ml Neb 2.5 MG NEB Q4HR NEB PRN SHORTNESS OF BREATH #60 Ref 0 NEBULE Citalopram (Citalopram) 40 Mg Tab 40 MG PO DAILY Control Depression #30 Ref 2 TAB Promethazine (Phenergan) 25 Mg Tablet 25 MG PO Q6H PRN NAUSEA OR VOMITING #30 Ref 0 TAB ([antidepressant]) Kiana Foy MD Feb 08, 2017 08:55
[2017-02-08] MEDS: IRON SUCROSE INJ 100 MG in SODIUM CHLORIDE 0.9% INJ 100 ML IV SCH (09:24)
[2017-02-09] MEDS ORDERED: ALBU6.7H INH (12:31)
== END 2017-02-08 12:58 | disposition home or self-care (01) ==
LOC: PHED 12:26 → PHEDA 15:07 → PH3A 15:54
PROVIDERS: ADMIT Hospitalist; ATTEND Hospitalist
DX: K86.1 Other chronic pancreatitis (principal); K85.90 Acute pancreatitis without necrosis or infection, unspecified; D50.9 Iron deficiency anemia, unspecified; J11.1 Influenza due to unidentified influenza virus with other respiratory manifestations; J45.909 Unspecified asthma, uncomplicated; D72.829 Elevated white blood cell count, unspecified; R00.0 Tachycardia, unspecified; F32.9 Major depressive disorder, single episode, unspecified; G89.29 Other chronic pain
CPT/HCPCS: 71020; 74176; 80048; 80053; 80061; 81001; 82607; 82746; 83540; 83550; 83605; 83690; 84075; 85025; 85610; 85730; 86710; 86850; 86900; 86901; 87804; 94640; 94664; 96361; 96374; 96375; 96376; 99285; G0378; J1756; J2270; J2405; J7030; J7613

== ENCOUNTER 2017-04-08 19:53 | Emergency (ER) | payer MEDICAID ==
[~2017-04-08 19:53] MED LIST changes: +FERR325T8 PO; +HYDR-3580 PO; +LOPE2CAP PO; +OMEP20TA PO; -PRIL20TA2 PO; -ZANT150T2 PO
[2017-04-08] MEDS ORDERED: IOHEXOL 350 MG/ML 10 ML VIAL (for RAD DIAG) IVCONTRAST ONE (19:54)
[2017-04-08 19:58] VITALS: BP 143/78; PULSE 108; TEMP 98.8
[2017-04-08] MEDS ORDERED: SODIUM CHLORIDE 0.9% FLUSH 10 ML FLUSH IV FLUSH PRN (20:45)
[2017-04-08] MEDS ORDERED: ONDANSETRON HCL 4 MG/2 ML VIAL IVP ONE (20:45)
[2017-04-08] MEDS ORDERED: MORPHINE SULFATE 4 MG/ML INJ IV PUSH ONE (20:45)
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
[2017-04-08 21:14] LABS: AUTOMATED NEUTROPHIL # 7.2 TH/MM3 (1.8-7.7); BASOPHIL # 0.1 TH/MM3 (0-0.2); BASOPHIL % 0.6 % (0.0-2.0); EOSINOPHIL # 0.3 TH/MM3 (0-0.4); EOSINOPHIL % 2.3 % (0.0-4.0); HEMATOCRIT 38.4 % (39.0-51.0); LYMPH % 27.3 % (9.0-44.0); LYMPHOCYTE # 3.2 TH/MM3 (1.0-4.8); MEAN CELL VOLUME 70.5 FL (80.0-100.0); MEAN CORPUSCULAR HEMOGLOBIN 21.4 PG (27.0-34.0); MEAN CORPUSCULAR HGB CONC 30.4 % (32.0-36.0); MONO % 8.9 % (0.0-8.0); NEUT % 60.9 % (16.0-70.0); PLATELET COUNT 389 TH/MM3 (150-450); RED BLOOD COUNT 5.44 MIL/MM3 (4.50-5.90); RED CELL DISTRIBUTION WIDTH 21.1 % (11.6-17.2); WHITE BLOOD COUNT 11.9 TH/MM3 (4.0-11.0)
[2017-04-08 21:16] LABS: HEMO FLAGS AUTO DIFF
[2017-04-08] MEDS: SODIUM CHLOR 0.9% 1000 ML INJ 1,000 ML IV SCH ×2 (21:19→21:56)
[2017-04-08 21:21] VITALS: RESP 18; O2SAT 96
[2017-04-08 21:21] LABS: CHLORIDE 103 MEQ/L (98-107); POTASSIUM 3.6 MEQ/L (3.5-5.1); SODIUM (NA) 139 MEQ/L (136-145)
[2017-04-08 21:25] LABS: ANION GAP 7 MEQ/L (5-15); BICARBONATE 29.5 MEQ/L (21.0-32.0); BLOOD UREA NITROGEN 10 MG/DL (7-18)
[2017-04-08 21:28] LABS: ALT (GPT) 40 U/L (12-78); AST (GOT) 20 U/L (15-37); GLOMERULAR FILTRATION RATE 80 ML/MIN (>89)
[2017-04-08 21:30] LABS: TOTAL BILIRUBIN ADULT 0.1 MG/DL (0.2-1.0)
[2017-04-08 21:31] LABS: ALKALINE PHOSPHATASE 59 U/L (45-117)
--- NOTE | 2017-04-08 21:44 | RADRPT ---
EXAM DATE/TIME: 04/08/2017 21:06 [facility] COMPARISON: CT ABDOMEN & PELVIS W/O CONTRAST, February 05, 2017, 13:38. INDICATIONS : Right lower quadrant pain. IV CONTRAST: 90 cc Omnipaque 350 (iohexol) IV ORAL CONTRAST: No oral contrast ingested. RADIATION DOSE: 22.39 CTDIvol (mGy) MEDICAL HISTORY : Pancreatitis. SURGICAL HISTORY : Cholecystectomy. ENCOUNTER: Initial ACUITY: 1 day PAIN SCALE: 8/10 LOCATION: Right lower quadrant abdomen TECHNIQUE: Volumetric scanning of the abdomen and pelvis was performed. Using automated exposure control and ad justment of the mA and/or kV according to patient size, radiation dose was kept as low as reasonably achievable to obtain optimal diagnostic quality images. DICOM format image data is available electro nically for review and comparison. FINDINGS: LOWER LUNGS: The visualized lower lungs are clear. LIVER: Homogeneous density without lesion. There is no dilation of the biliary tree. Previous cholecystecto my. SPLEEN: Normal size without lesion. PANCREAS: Calcification again seen in the pancreas, mainly in the head region. The pancreatic duct is mildly di stended but unchanged, measures about 6 mm within the head. Common bile duct is nondistended. Patient has had previous cholecystectomy. No acute pancreatic inflammatory changes are demonstrated. KIDNEYS: Normal in size and shape. There is no mass, stone or hydronephrosis. ADRENAL GLANDS: Within normal limits. VASCULAR: There is no aortic aneurysm. BOWEL/MESENTERY: The stomach, small bowel, and colon demonstrate no acute abnormality. There is no free intraperitone al air or fluid. The appendix is well-visualized, normal. ABDOMINAL WALL: Within normal limits. RETROPERITONEUM: There is no lymphadenopathy. BLADDER: No wall thickening or mass. REPRODUCTIVE: Within normal limits. INGUINAL: There is no lymphadenopathy or hernia. MUSCULOSKELETAL: Within normal limits for patient age. CONCLUSION: 1. No acute abnormality demonstrated. 2. Chronic pancreatitis changes are again noted. No evidence of acute pancreatitis. 3. Previous cholecystectomy. Antione Lugo MD on April 08, 2017 at 21:40 Board Certified Radiologist. This report was verified electronically.
[2017-04-08 21:56] LABS: OVALOCYTES 1+ (NORMAL); PLATELET ESTIMATE SMEAR NORMAL (NORMAL); PLATELET MORPHOLOGY NORMAL (NORMAL); SCAN/DIFF AUTO DIFF CONFIRMED
[2017-04-08] MEDS ORDERED: ZOFR4TAB PO (21:58)
[2017-04-08] MEDS ORDERED: OMEP20TA PO ×2 (21:58→22:41)
[2017-04-08] MEDS ORDERED: PROM25TA10 PO (22:41)
[2017-04-08 22:43] VITALS: BP 140/70
== END 2017-04-08 22:45 | disposition home or self-care (01) ==
LOC: PHED 19:53
DX: R10.9 Unspecified abdominal pain (principal); K21.9 Gastro-esophageal reflux disease without esophagitis; F17.210 Nicotine dependence, cigarettes, uncomplicated; J45.909 Unspecified asthma, uncomplicated; K86.1 Other chronic pancreatitis; Z90.49 Acquired absence of other specified parts of digestive tract
CPT/HCPCS: 74177; 80053; 83690; 85025; 96361; 96374; 96375; 99285; J2270; J2405; J7030; Q9967

== ENCOUNTER 2017-05-21 16:24 | Emergency (ER) | payer MEDICAID ==
[~2017-05-21] VITALS: Ht 182.9 cm; Wt 110.8 kg
[~2017-05-21 16:24] MED LIST changes: +FERR325T18 PO; -FERR325T8 PO; -OMEP20TA PO; +OMEP20TA93 PO; -OSEL75 PO; +ZOFR4TAB PO; -antidepressant
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
[2017-05-21] MEDS ORDERED: SODIUM CHLOR 0.9% 1000 ML INJ 1,000 ML IV SCH (16:46)
[2017-05-21] MEDS ORDERED: HYDR-3583 PO (16:52)
[2017-05-21 16:53] VITALS: BP 112/70; PULSE 126; RESP 18; TEMP 98.8; O2SAT 98
[2017-05-21] MEDS ORDERED: SODIUM CHLORIDE 0.9% FLUSH 10 ML FLUSH IV FLUSH PRN (17:00)
[2017-05-21] MEDS ORDERED: KETOROLAC TROMETHAMINE 30 MG/ML (IVP) VIAL IV PUSH ONE (17:00)
[2017-05-21] MEDS ORDERED: METOCLOPRAMIDE HCL 10 MG/2 ML VIAL IV PUSH ONE (17:00)
[2017-05-21 17:13] LABS: AUTOMATED NEUTROPHIL # 8.3 TH/MM3 (1.8-7.7); BASOPHIL # 0.1 TH/MM3 (0-0.2); BASOPHIL % 0.7 % (0.0-2.0); EOSINOPHIL # 0.7 TH/MM3 (0-0.4); HEMATOCRIT 38.4 % (39.0-51.0); LYMPH % 18.6 % (9.0-44.0); LYMPHOCYTE # 2.2 TH/MM3 (1.0-4.8); MEAN CELL VOLUME 71.5 FL (80.0-100.0); MEAN CORPUSCULAR HEMOGLOBIN 22.5 PG (27.0-34.0); MEAN CORPUSCULAR HGB CONC 31.5 % (32.0-36.0); MONO % 6.7 % (0.0-8.0); PLATELET COUNT 401 TH/MM3 (150-450); RED BLOOD COUNT 5.37 MIL/MM3 (4.50-5.90); RED CELL DISTRIBUTION WIDTH 16.7 % (11.6-17.2); WHITE BLOOD COUNT 12.1 TH/MM3 (4.0-11.0)
[2017-05-21 17:16] VITALS: RESP 20; O2SAT 98
[2017-05-21 17:20] LABS: HEMO FLAGS AUTO DIFF
[2017-05-21 17:27] LABS: CHLORIDE 103 MEQ/L (98-107); POTASSIUM 3.5 MEQ/L (3.5-5.1); SODIUM (NA) 138 MEQ/L (136-145)
[2017-05-21 17:33] LABS: ANION GAP 6 MEQ/L (5-15); BLOOD UREA NITROGEN 13 MG/DL (7-18)
[2017-05-21 17:36] LABS: ALT (GPT) 29 U/L (12-78); AST (GOT) 13 U/L (15-37); GLOMERULAR FILTRATION RATE 90 ML/MIN (>89)
[2017-05-21 17:37] LABS: TOTAL BILIRUBIN ADULT 0.3 MG/DL (0.2-1.0)
[2017-05-21 17:39] LABS: ALKALINE PHOSPHATASE 69 U/L (45-117)
[2017-05-21 17:55] VITALS: BP 119/75; PULSE 98; RESP 18; O2SAT 99
[2017-05-21 17:58] LABS: OVALOCYTES 1+ (NORMAL); SCAN/DIFF AUTO DIFF CONFIRMED
[2017-05-21] MEDS ORDERED: REGL5TAB PO (17:59)
[2017-05-21] MEDS ORDERED: OMEP20TA93 PO (17:59)
== END 2017-05-21 18:18 | disposition home or self-care (01) ==
LOC: PHED 16:24
DX: K29.00 Acute gastritis without bleeding (principal); K86.1 Other chronic pancreatitis
CPT/HCPCS: 80053; 83690; 85025; 96374; 96375; 99284; J1885; J2765; J7030

== ENCOUNTER → 2017-12-29 | Outpatient (CLI) | payer MEDICAID ==
[~2017-12-29] MED LIST changes: -ALBU6.7H INH; +ALBUAER3 INH; -CITA40TA4 PO; -FERR325T18 PO; -HYDR-3580 PO; +HYDR-3583 PO; -LOPE2CAP PO; -OMEP20TA93 PO; +PANC3600 PO; +PANT40TA3 PO; +REGL5TAB PO; -ZOFR4TAB PO
--- NOTE | 2017-12-29 20:03 | ECHRPT ---
Indication: ABNORMAL EKG CONCLUSIONS Mildly dilated left ventricle. Wall thickness is normal. The left ventricular systolic function is low normal with an estimated ejection fraction in the rang e of 50- 55%. BP: / HR: Rhythm: Technical Quality: FINDINGS LEFT VENTRICLE Mildly dilated left ventricle. Wall thickness is normal. The left ventricular systolic function is low normal with an estimated ejection fraction in the rang e of 50- 55%. RIGHT VENTRICLE Normal right ventricular size and systolic function. LEFT ATRIUM The left atrial size is normal. RIGHT ATRIUM The right atrial size is normal. ATRIAL SEPTUM Normal atrial septal thickness without atrial level shunting by limited color doppler interrogation. AORTA The aortic root and proximal ascending aorta are normal in size on limited imaging. MITRAL VALVE Structurally normal mitral valve. No mitral valve stenosis or regurgitation. AORTIC VALVE Trileaflet aortic valve. No aortic valve stenosis or regurgitation. TRICUSPID VALVE Structurally normal tricuspid valve. No tricuspid valve stenosis or regurgitation. PULMONARY VALVE The pulmonary valve is not well visualized. VESSELS The inferior vena cava is normal in size. PERICARDIUM No pericardial effusion. Diamond Oh MD, FACC (Electronically Signed) Final Date:29 December 2017 20:02
--- NOTE | 2017-12-30 14:21 | TR ---
Date Performed: 12/29/2017 Time Performed: 12:37:51 DOCTOR: Hilario Recinos DRUG LIST: CLINICAL HISTORY: REASON FOR TEST: REASON FOR ENDING: OBSERVATION: CONCLUSION: Alan protocol completed. Stopped sec to reaching target heart rate and leg fatigue. Max heart rate 164. Max HR Achieved=86.0% Target UB=607 Total Exercise Time=5:01 Maximum LS=098/80. Mild chest tightness at peak and during recovery. History of asthma, took albuterol rescue inhaler du ring recovery. Normal bp response. Fair exercise tolerance. No st t segment change. Infrequent PVC. R ecovery quick. Chest tightness resolved approximately 3:30 minutes into recovery. COMMENTS: Patient exercised using the Alan protocol. No electrocardiographic changes were seen to suggest ischemia. Hemodynamic response to exercise was normal. No significant arrhythmia was prese nt.
== END ==
LOC: HECH 11:43
DX: R94.31 Abnormal electrocardiogram [ECG] [EKG] (principal)
CPT/HCPCS: 93017; 93306